=== PATIENT | female | born 1990 | race Caucasian/White ===

== ENCOUNTER → 2020-03-11 | Day surgery (SDC) | payer SELFPAY ==
[~2020-03-11] MED LIST: CEFAZOLIN SOD 1 GM/NS 50ML 100 ML IV ONE; DEXAMETHASONE SOD PHOS INJ 4 MG/ML VIAL ONE; FENTANYL CITRATE/PF 100MCG/2 ML INJ ONE; LIDOCAINE HCL 2% LOCAL INJ 5 ML SDV VIAL INJ ONE; MEPERIDINE HCL INJ 25 MG/ML VIAL ONE; MIDAZOLAM HCL 2 MG/2 ML VIAL ONE; MISOPROSTOL 100 MCG TAB RC ONE; ONDANSETRON HCL INJ 2MG/ML 2ML 2 MG/ML VIAL ONE; OXYTOCIN INJ 10 UNIT/ML VIAL ONE; PROPOFOL IV EMULSION 10 MG/ML 20 ML VIAL ONE; SEVOFLURANE INHAL SOLN 250 ML PEN BTL ONE
[2020-03-11 10:32] LABS: BASOPHILS % 0.3 % (0.0-1.0); EOSINOPHILS # (AUTO) 0.1 (0.0-0.4); EOSINOPHILS % 0.8 % (0.0-6.0); HEMATOCRIT 38.4 % (34.2-44.1); HEMOGLOBIN 12.8 g/dL (12.0-16.0); LYMPHOCYTES # (AUTO) 1.3 (1.0-3.2); LYMPHOCYTES % 21.5 % (18.0-39.1); MEAN CORPUSCULAR HEMOGLOBIN 30.9 pg (28-32); MEAN CORPUSCULAR HGB CONC 33.3 g/dL (31-35); MEAN CORPUSCULAR VOLUME 92.8 fL (81-99); MONOCYTES # (AUTO) 0.3 (0.2-0.8); MONOCYTES % 5.1 % (4.4-11.3); NEUTROPHILS # (AUTO) 4.4 (2.1-6.9); PLATELET COUNT 256 x10e3/uL (140-360); RED BLOOD COUNT 4.14 x10e6/uL (3.6-5.1); RED CELL DISTRIBUTION WIDTH 12.8 % (11.7-14.4)
[2020-03-11 13:40] VITALS: BP 105/60
--- NOTE | 2020-03-11 17:57 | Operative Report ---
DATE OF PROCEDURE: 03/11/2020 SURGEON: Dorian Guo MD PREOPERATIVE DIAGNOSIS: Missed , A-positive blood type. POSTOPERATIVE DIAGNOSIS: Missed , A-positive blood type. TITLE OF PROCEDURE: Suction curettage and dilatation. ANESTHESIA: General with Dr. Zhao, assistant broker. INDICATION FOR OPERATION: The patient is a 29-year-old 3, para 1-0-2-1 with last menstrual period on December 24, 2019, at 11 weeks by dates, who was found to have a missed , blighted ovum. On sono, no embryo was noted, no heart tones, but there was an 8-week size gestational sac noted, and it has apparently been present for several weeks, it is already collapsing and she is here for D and C secondary to missed . She is therefore, taken to the operating room at this time. The urgency of the procedure was considerable because this has already been 4 to 5 weeks and she might be in danger of DIC if we were to wait more than another week to do this procedure. FINDINGS OF SURGERY: There was a 10-12 week size uterus. The cervix was already slightly open. The products of conception were easily obtained and sent to pathology. DESCRIPTION OF PROCEDURE: The patient was taken to the operating room and placed on table in supine position. General anesthesia was administered. The patient was placed in the lithotomy position. The perineum was prepared and draped in usual sterile manner. The bladder was drained by in and out catheterization. Pelvic exam revealed a 10-12 week size anteverted uterus with no adnexal masses. A weighted speculum was placed in posterior vaginal wall, then with the aid of a right angle retractor and anterior lip of the cervix was grasped with a ring forceps. The cervix was noted to already be open and did not require much dilatation, just a #36 dilator was used to dilate the cervix and a #12 suction curette was placed. Suction curettage was performed with the products of conception obtained. The curettage was continued until the uterine cry was felt on all four phillip of the uterus and the endometrial cavity was explored with a sharp curette. No further tissue was obtained. The procedure was deemed terminated. The patient received Pitocin IV 20 units and the uterus became well contracted and then 200 mcg of Cytotec was placed rectally to also aid in hemostasis. Thus completing the procedure. There was no complications noted. estimated blood loss was 50 mL. The patient tolerated the procedure well and was transferred from the operating room to the recovery room in stable condition. As per the patient's request, a small portion of the products of conception were sent for genetic microarray analysis, which she had consented to prior to the surgery. The main portion of the products of conception was sent to pathology for definitive diagnosis. MD MARTÍN Arriola/MODL /[id number]
== END | disposition home or self-care (01) ==
LOC: OR 09:38
PROVIDERS: ATTEND Obstetrics & Gynecology
DX: O02.1 Missed abortion (principal); Z67.10 Type A blood, Rh positive; D64.9 Anemia, unspecified; F41.9 Anxiety disorder, unspecified; Z87.891 Personal history of nicotine dependence
CPT/HCPCS: 36415; 59820; 85025; 86850; 86900; 88305; J0690; J1100; J2001; J2175; J2250; J2405; J2590; J2704; J3010